=== PATIENT | male | born 1970 | race Caucasian/White ===

== ENCOUNTER 2023-07-01 09:45 | Emergency (ER) | payer BC, OTHER ==
[2023-07-01] MEDS ORDERED: Amoxicillin/Clavulanate K 875-125 MG Tab PO ONE (11:57)
== END 2023-07-01 13:03 | disposition home or self-care (01) ==
LOC: JD.ED 09:45 → MERGE 09:45 → JD.ED 13:03
DX: S62.635B Displaced fracture of distal phalanx of left ring finger, initial encounter for open fracture (principal); E11.9 Type 2 diabetes mellitus without complications; W22.8XXA Striking against or struck by other objects, initial encounter
CPT/HCPCS: 73130; 99285; A9270; 99284